=== PATIENT | female | born 2000 | race Caucasian/White ===

== ENCOUNTER 2020-12-08 03:50 | Inpatient (IN) ==
[2020-12-08] MEDS ORDERED: Famotidine 20 MG/2 ML VIAL IVP PRN (04:04)
[2020-12-08] MEDS ORDERED: Metoclopramide 10 MG/2 ML VIAL IVP PRN (04:04)
[2020-12-08] MEDS ORDERED: Ondansetron 4 MG/2 ML VIAL IVP PRN (04:04)
[2020-12-08] MEDS ORDERED: Lidocaine 1% 20 ML MDV ID PRN (04:04)
[2020-12-08] MEDS ORDERED: Naloxone 0.4 MG/ML INJ IVP PRN ×2 (04:04→09:09)
[2020-12-08] MEDS ORDERED: Azithromycin 500 MG in 0.9 % Sodium Chloride 250 ML IVPB PRN (04:04)
[2020-12-08] MEDS ORDERED: *HR* Nalbuphine 10 MG/ML AMPUL IV PRN (04:04)
[2020-12-08] MEDS: Oxytocin 20 units/ LR 1000 mL 20 UNIT/1,000 ML BAG IVC SCH (04:45)
[2020-12-08] MEDS: Ringers Solution, Lactated 1,000 ML IVC SCH ×2 (04:45→21:15)
[2020-12-08 05:37] LABS: Basophils # 0.1 K/mcL (0.0-0.2); Basophils % 0.5 %; Eosinophils # 0.2 K/mcL (0.0-0.6); Eosinophils % 1.6 %; Hematocrit 34.9 % (35.3-44.9); Hemoglobin 11.8 g/dL (11.5-15.4); Immature Granulocytes % 1.5 % (0-4); Lymphocytes % 19.3 %; Mean Corpuscular HGB Conc 33.8 g/dL (31.6-35.5); Mean Corpuscular Hemoglobin 29.1 pg (28.0-33.3); Mean Platelet Volume 10.5 fL (9.4-12.4); Monocytes # 0.8 K/mcL (0.0-1.3); Monocytes % 8.3 %; Platelet Count 213 K/mcL (140-400); Red Blood Count 4.06 M/mcL (3.82-4.97); Segmented Neutrophils % 68.8 %; White Blood Count 10.1 K/mcL (4.3-11.1)
[2020-12-08 05:47] LABS: Amphetamine Screen,Urine Negative ng/mL (Cutoff=1000); Barbiturate Screen,Urine Negative ng/mL (Cutoff=200); Benzodiazepines Screen,Urine Negative ng/mL (Cutoff=200); Cannabinoid Screen,Urine Negative ng/mL (Cutoff = 50); Cocaine Screen,Urine Negative ng/mL (Cutoff= 300); Opiate Screen,Urine Negative ng/mL (Cutoff=300); Phencyclidine Screen,Urine Negative ng/mL (Cutoff=25)
[2020-12-08] MEDS ORDERED: 0.9 % Sodium Chloride 500 ML IVC PRN (09:09)
[2020-12-08] MEDS ORDERED: Epidural Premix (fent/bupiv) 110 ML EP SCH ×2 (09:15→14:00)
[2020-12-08] MEDS ORDERED: Epidural Premix (fent/bupiv) 110 ML EP ONE (13:54)
[2020-12-09] MEDS: Oxytocin 20 units/ LR 1000 mL 20 UNIT/1,000 ML BAG IVC SCH ×3 (01:40→12:17)
[2020-12-09] MEDS ORDERED: Sennosides 8.6 MG TABLET PO PRN (04:12)
[2020-12-09] MEDS ORDERED: Measles/Mumps/Rubella Vacc 0.5 ML VIAL SQ PRN (04:12)
[2020-12-09] MEDS ORDERED: Benzocaine/Menthol 56 GM AEROSOL SPRAY TP PRN (04:12)
[2020-12-09] MEDS ORDERED: Rho Immune Globulin 1,500 UNIT SYRINGE IM PRN (04:12)
[2020-12-09] MEDS ORDERED: Oxytocin 20 units/ LR 1000 mL 20 UNIT/1,000 ML BAG IVC ONE (04:12)
[2020-12-09] MEDS ORDERED: Lanolin 7 G OINT...G. TP PRN (04:12)
[2020-12-09] MEDS ORDERED: Acetaminophen 325 MG TABLET PO PRN (04:17)
[2020-12-09] MEDS: Ibuprofen 600 MG TABLET PO SCH ×3 (05:59→18:40)
[2020-12-09] MEDS: Prenatal Vit/FA 1 EACH TABLET PO SCH (08:36)
[2020-12-09] MEDS ORDERED: NON-FORMULARY MEDICATION 1 EACH EACH (Ferrous Sulfate 1 TAB) PO SCH (09:00)
[2020-12-09] MEDS ORDERED: NON-FORMULARY MEDICATION 1 EACH EACH (Prenatal Vitamin Tablet 1 TAB) PO SCH (09:00)
[2020-12-10] MEDS: Ibuprofen 600 MG TABLET PO SCH ×2 (00:49→07:41)
[2020-12-10 05:22] LABS: Basophils % 0.2 %; Eosinophils # 0.3 K/mcL (0.0-0.6); Hematocrit 28.8 % (35.3-44.9); Immature Granulocytes % 1.2 % (0-4); Lymphocytes # 2.1 K/mcL (0.6-4.6); Mean Corpuscular HGB Conc 33.3 g/dL (31.6-35.5); Mean Corpuscular Hemoglobin 28.8 pg (28.0-33.3); Mean Corpuscular Volume 86.5 fL (83.0-100.0); Mean Platelet Volume 10.9 fL (9.4-12.4); Monocytes % 6.7 %; Neutrophils # 11.6 K/mcL (1.6-8.9); Platelet Count 151 K/mcL (140-400); Red Blood Count 3.33 M/mcL (3.82-4.97); Red Cell Distribution Width 15.4 % (11.5-14.5); Segmented Neutrophils % 75.9 %
[2020-12-10 05:23] LABS: Hemoglobin 9.6 g/dL (11.5-15.4); White Blood Count 15.3 K/mcL (4.3-11.1)
[2020-12-10] MEDS: Prenatal Vit/FA 1 EACH TABLET PO SCH (07:41)
[2020-12-10 07:49] VITALS: BP 118/76
== END 2020-12-10 10:22 | disposition home or self-care (01) | DRG 560 ==
LOC: 1NENULAB 03:50 → 1NENUOBS 12-09 04:00
PROVIDERS: ADMIT Student in an Organized Health Care Education/Training Program; ATTEND Student in an Organized Health Care Education/Training Program